=== PATIENT | female | born 1935 | race Caucasian/White ===

== ENCOUNTER 2024-08-26 07:01 | Emergency (ER) | payer OTHER ==
--- NOTE | 2024-08-26 08:26 | RAD REPORT ---
EXAMINATION: XR Hip Left 2 View CLINICAL INDICATION: Female, 88 years old. [facility] MA[facility] fall Bed Name: 17 TECHNIQUE: 2 view radiograph of the left hip were obtained. COMPARISON: No prior exam. FINDINGS: No evidence of fracture or dislocation. Normal alignment. Mild to moderate left hip joint d egenerative changes, and up to moderate degenerative changes of the SI joints with no suspicious focal bone lesion. Soft tissues are unremarkable. IMPRESSION: No acute osseous abnormalities. Up to moderate left hip joint degenerative changes.
--- NOTE | 2024-08-26 08:27 | RAD REPORT ---
EXAMINATION: XR Elbow Left 2 View CLINICAL INDICATION: Female, 88 years old. fall TECHNIQUE: 2 view radiographs of the left elbow were obtained. COMPARISON: No prior exam. FINDINGS: Mildly displaced fracture at the base of the olecranon process. Large joint effusion with e levation of the anterior and posterior fat pads. No significant arthropathy. No suspicious focal bone lesion. Soft tissue swelling about the elbow. IMPRESSION: Mildly displaced fracture at the base of the olecranon process with large effusion.
--- NOTE | 2024-08-26 09:15 | RAD REPORT ---
EXAM: CT brain without contrast HISTORY: TRAUMA COMPARISON: None TECHNIQUE: Multiple contiguous axial images were obtained and a CT of the brain without contrast. Sag ittal and coronal reformats were performed. FINDINGS: No evidence of hydrocephalus, intracranial hemorrhage, or extra-axial fluid collection. The brain is normal in morphology. The calvarium is intact. Layering left maxillary sinus air-fluid level. Mastoid air cells are essenti ally clear. IMPRESSION: No evidence of acute intracranial abnormality. EXAM: CT of the cervical spine without contrast HISTORY: TRAUMA COMPARISON: None TECHNIQUE: Multiple contiguous axial images were obtained in a CT of the cervical spine without contr ast. Sagittal and coronal reformats were performed. FINDINGS: The vertebral bodies demonstrate normal height and alignment. Multilevel degenerative lomeli es, with facet and uncovertebral joint remodeling contributing to up to advanced neural foraminal narrowing on the right at C3-4. C4-C7 plating hardware in place, with demineralization of the fused s egment. No degenerative changes are present. No prevertebral soft tissue swelling is seen. The posterior facets are well aligned. Normal alignment of the skull base with the cervical spine is seen. The lung apices are unremarkable. IMPRESSION: No evidence of acute osseous abnormality of the cervical spine.
--- NOTE | 2024-08-26 09:33 | ER ---
Nurse's Notes [facility] Name: Nancy Somers Age: 88 yrs Sex: Female : 1935 Arrival Date: 08/26/2024 Time: 07:01 Bed 17 Private MD: Diagnosis: Left elbow fracture Presentation: 08/26 07:03 Chief complaint: EMS states: fall injury, c/o pain to left hip and elbow. Coronavirus vc1 screen: Vaccine status: Patient reports receiving the 2nd dose of the covid vaccine. At this time, the client does not indicate any symptoms associated with coronavirus-19. Ebola Screen: Patient negative for fever greater than or equal to 101.5 degrees Fahrenheit, and additional compatible Ebola Virus Disease symptoms Patient denies exposure to infectious person. Patient denies travel to an Ebola-affected area in the 21 days before illness onset. No symptoms or risks identified at this time. Initial Sepsis Screen: Does the patient meet any 2 criteria? No. Patient's initial sepsis screen is negative. Does the patient have a suspected source of infection? No. Patient's initial sepsis screen is negative. Risk Assessment: Do you want to hurt yourself or someone else? Patient reports no desire to harm self or others. Onset of symptoms was August 26, 2024. Care prior to arrival: None. Activity prior to arrival: None. Mechanism of Injury: Fall from standing position. Transition of care: patient was not received from another setting of care. 07:03 Method Of Arrival: EMS: [facility] vc1 07:03 Acuity: TABBY 3 vc1 07:06 Transition of care: patient was not received from another setting of care. Triage Assessment: 07:08 General: Appears in no apparent distress. comfortable, slender, well groomed, well vc1 developed, well nourished, Behavior is calm, cooperative, appropriate for age. Pain: Complains of pain in left hip and left elbow Pain does not radiate. Pain currently is 10 out of 10 on a pain scale. Quality of pain is described as sharp, Pain began suddenly, Aggravated by repositioning. EENT: No deficits noted. No signs and/or symptoms were reported regarding the EENT system. Neuro: Level of Consciousness is awake, alert, obeys commands, Oriented to person, place, time, situation, Appropriate for age. Cardiovascular: Capillary refill < 3 seconds Patient's skin is warm and dry. Respiratory: Airway is patent Respiratory effort is even, unlabored, Respiratory pattern is regular, symmetrical, Breath sounds are clear bilaterally. GI: No deficits noted. No signs and/or symptoms were reported involving the gastrointestinal system. : No deficits noted. No signs and/or symptoms were reported regarding the genitourinary system. Derm: Wound noted left elbow. Musculoskeletal: Circulation, motion, and sensation intact. Range of motion: limited in left hip. Historical: - Allergies: 07:07 No Known Allergies; vc1 - PMHx: 07:07 "heart condition"; Diabetes mellitus; vc1 - PSHx: 07:07 Colostomy; vc1 - Immunization history:: Client reports receiving the 2nd dose of the Covid vaccine, Pneumococcal vaccine is up to date, Flu vaccine is up to date. - Infectious Disease History:: Denies. - Social history:: Smoking status: Patient denies any tobacco usage or history of. Screenin:08 Abuse screen: Denies threats or abuse. Nutritional screening: No deficits noted. vc1 Tuberculosis screening: No symptoms or risk factors identified. 07:15 [facility] ED Fall Risk Assessment (Adult) History of falling in the last 3 months, hb including since admission Yes- single mechanical fall (1 pt) Confusion or Disorientation No (0 pts) Intoxicated or Sedated No (0 pts) Impaired Gait No (0 pts) Mobility Assist Device Used No (0 pt) Altered Elimination No (0 pt) Score/Fall Risk Level 0 - 2 = Low Risk Oriented to surroundings, Maintained a safe environment, Educated pt \\T\\ family on fall prevention, incl call for assistance when getting out of bed. Assessment: 07:15 General: Appears in no apparent distress. Behavior is calm, cooperative. Pain: Pain hb currently is 10 out of 10 on a pain scale. Neuro: Level of Consciousness is awake, alert, obeys commands, Oriented to person, place, time, situation. Cardiovascular: Patient's skin is warm and dry. Respiratory: Respiratory effort is even, unlabored, Respiratory pattern is regular, symmetrical. GI: No signs and/or symptoms were reported involving the gastrointestinal system. : No signs and/or symptoms were reported regarding the genitourinary system. EENT: No signs and/or symptoms were reported regarding the EENT system. Derm: Skin is pink, warm \\T\\ dry. Musculoskeletal: Reports severe pain in left elbow and hip. 08:30 Reassessment: Patient appears in no apparent distress at this time. Patient and/or hb family updated on plan of care and expected duration. Pain level reassessed. Patient is alert, oriented x 3, equal unlabored respirations, skin warm/dry/pink. 10:06 Reassessment: Patient appears in no apparent distress at this time. Patient and/or hb family updated on plan of care and expected duration. Pain level reassessed. Patient is alert, oriented x 3, equal unlabored respirations, skin warm/dry/pink. Vital Signs: 07:03 BP 133 / 56; Pulse 65; Resp 16; Temp 98; Pulse Ox 96% ; Weight 51.71 kg; Height 4 ft. vc1 11 in. ; Pain 10/10; 10:06 Pulse 65; Resp 16; Pulse Ox 100% ; hb 07:03 Body Mass Index 23.02 (51.71 kg, 149.86 cm) vc1 07:03 Pain Scale: Adult vc1 ED Course: 07:02 Patient arrived in ED. vc1 07:05 Jhon Harper MD is Attending Physician. sp3 07:07 Triage completed. vc1 07:09 Patient has correct armband on for positive identification. Bed in low position. Call vc1 light in reach. Side rails up X2. Pulse ox on. NIBP on. 07:15 Provided Education on: tests, result times. hb 07:52 Hip Left 2 View XRAY In Process Unspecified. EDMS 07:52 Elbow Left 2 View XRAY In Process Unspecified. EDMS 08:24 CT Head C Spine In Process Unspecified. EDMS 09:32 Gaetano Ellis MD is Referral Physician. sp3 09:48 Orthoglass splint: posterior long arm splint applied to the left arm. Sling applied to em1 left arm. 10:06 No provider procedures requiring assistance completed. Patient did not have IV access hb during this emergency room visit. Administered Medications: 10:06 Drug: HYDROcodone-acetaminophen PO 5 mg-325 mg 2 tabs PO once Route: PO; hb Medication: 07:15 VIS not applicable for this client. hb Outcome: 09:32 Discharge ordered by . sp3 10:07 Discharged to home via wheelchair, with family, hb 10:07 Condition: stable 10:07 Discharge instructions given to patient, family, Instructed on discharge instructions, follow up and referral plans. medication usage, Demonstrated understanding of instructions, follow-up care, medications, Prescriptions given X 1, 10:08 Patient left the ED. Signatures: Dispatcher [employer] Michel Saavedra em1 Gypsy Ann RN RN Alexia Samson RN RN Jhon Harper MD MD sp3 Shalini Lerma RN RN vc1
--- NOTE | 2024-08-26 09:33 | EDPHYS ---
Physician Documentation [facility] Name: Nancy Somers Age: 88 yrs Sex: Female : 1935 Arrival Date: 08/26/2024 Time: 07:01 Bed 17 Private MD: ED Physician Jhon Harper HPI: 08/26 07:27 This 88 yrs old Female presents to ER via EMS with complaints of Fall Injury, Hip Pain. 3 07:27 88-year-old female history of diabetes, hypertension, currently on Eliquis presents to 3 the ED with a mechanical fall while using her walker with injury to the left hip, left elbow and head. Denies loss of consciousness. No other complaints including medical prodrome, chest pain, shortness breath, abdominal pain, other extremity pain, syncope, or any other signs or symptoms on ROS at this time.. Historical: - Allergies: 07:07 No Known Allergies; vc1 - PMHx: 07:07 "heart condition"; Diabetes mellitus; vc1 - PSHx: 07:07 Colostomy; vc1 - Immunization history:: Client reports receiving the 2nd dose of the Covid vaccine, Pneumococcal vaccine is up to date, Flu vaccine is up to date. - Infectious Disease History:: Denies. - Social history:: Smoking status: Patient denies any tobacco usage or history of. ROS: 07:28 Constitutional: Negative for fever, chills, and weight loss, Eyes: Negative for injury, sp3 pain, redness, and discharge, Neck: Negative for injury, pain, and swelling, Cardiovascular: Negative for chest pain, palpitations, and edema, Respiratory: Negative for shortness of breath, cough, wheezing, and pleuritic chest pain, Abdomen/GI: Negative for abdominal pain, nausea, vomiting, diarrhea, and constipation, Back: Negative for injury and pain, Skin: Negative for injury, rash, and discoloration, Allergy/Immunology: Negative for hives, rash, and allergies, Endocrine: Negative for neck swelling, polydipsia, polyuria, polyphagia, and marked weight changes, Hematologic/Lymphatic: Negative for swollen nodes, abnormal bleeding, and unusual bruising, 07:28 All other systems are negative, Exam: 07:28 Constitutional: This is a well developed, well nourished patient who is awake, alert, sp3 and in no acute distress. Head/Face: Normocephalic, atraumatic. Eyes: Pupils equal round and reactive to light, extra-ocular motions intact. Lids and lashes normal. Conjunctiva and sclera are non-icteric and not injected. Cornea within normal limits. Periorbital areas with no swelling, redness, or edema. ENT: Nares patent. No nasal discharge, no septal abnormalities noted. External auditory canals are clear. Oropharynx with no redness, swelling, or masses, exudates, or evidence of obstruction, uvula midline. Mucous membranes moist. Neck: Trachea midline, no thyromegaly or masses palpated, and no cervical lymphadenopathy. Supple, full range of motion without nuchal rigidity, or vertebral point tenderness. No Meningismus. Chest/axilla: Normal chest wall appearance and motion. Nontender with no deformity. No lesions are appreciated. Cardiovascular: Regular rate and rhythm with a normal S1 and S2. No gallops, murmurs, or rubs. Normal PMI, no JVD. No pulse deficits. Respiratory: Lungs have equal breath sounds bilaterally, clear to auscultation and percussion. No rales, rhonchi or wheezes noted. No increased work of breathing, no retractions or nasal flaring. Abdomen/GI: Soft, non-tender, with normal bowel sounds. No distension or tympany. No guarding or rebound. No evidence of tenderness throughout. Back: No spinal tenderness. No costovertebral tenderness. Full range of motion. Skin: Warm, dry with normal turgor. Normal color with no rashes, no lesions, and no evidence of cellulitis. Neuro: Awake and alert, GCS 15, oriented to person, place, time, and situation. Cranial nerves II-XII grossly intact. Motor strength 5/5 in all extremities. Sensory grossly intact. Cerebellar exam normal. Normal gait. Psych: Awake, alert, with orientation to person, place and time. Behavior, mood, and affect are within normal limits. 07:28 Musculoskeletal/extremity: Pain to lateral epicondyle of the left elbow. Distal neurovascular exam of the left upper extremity is intact. Pain to the lateral left hip as well without deformity, leg shortening or external rotation. No pain on axial load. Distal neurovascular exam of the left lower extremity is also normal.. Vital Signs: 07:03 BP 133 / 56; Pulse 65; Resp 16; Temp 98; Pulse Ox 96% ; Weight 51.71 kg; Height 4 ft. vc1 11 in. ; Pain 10/10; 10:06 Pulse 65; Resp 16; Pulse Ox 100% ; hb 07:03 Body Mass Index 23.02 (51.71 kg, 149.86 cm) vc1 07:03 Pain Scale: Adult vc1 MDM: 07:07 Medical Screening Exam initiated sp3 07:29 Data reviewed: vital signs, nurses notes, radiologic studies. ED course: 88-year-old sp3 female with mechanical fall. Differential diagnosis includes hip contusion, hip fracture, left elbow contusion, left elbow sprain or fracture, possible head injury. Workup will include CT scan of the head and C-spine, x-ray of the left elbow and x-ray of the left hip. No further diagnostics indicated at this time. Neurological exam is normal.. 09:17 ED course: Hip x-ray and CT scan of the head and C-spine demonstrate no traumatic sp3 abnormality. Left elbow demonstrates fracture at base of olecranon process left side with joint effusion. Will place patient in splint and sling and have follow-up with orthopedics.. 08/26 07:06 Order name: Hip Left 2 View XRAY; Complete Time: 09:03 sp3 08/26 07:06 Order name: Elbow Left 2 View XRAY; Complete Time: 09:03 sp3 08/26 07:26 Order name: CT Head C Spine; Complete Time: 09:16 sp3 08/26 09:18 Order name: Splint: Left Elbow; Complete Time: 09:48 sp3 08/26 09:18 Order name: Sling; Complete Time: 09:48 sp3 Administered Medications: 10:06 Drug: HYDROcodone-acetaminophen PO 5 mg-325 mg 2 tabs PO once Route: PO; hb Disposition Summary: 08/26/24 09:32 Discharge Ordered Notes: Location: Home sp3 Condition: Stable sp3 Diagnosis - Left elbow fracture sp3 Followup: sp3 - With: Gaetano Ellis MD - When: Upon discharge from the Emergency Department - Reason: Continuance of care Discharge Instructions: - Discharge Summary Sheet sp3 - Cast or Splint Care, Adult sp3 - Ulnar Fracture sp3 - How to Use a Sling sp3 Forms: - Medication Reconciliation Form sp3 - Antibiotic Education sp3 - Prescription Opioid Use sp3 - Patient Portal Instructions sp3 - Leadership Thank You Letter sp3 Prescriptions: - Tramadol 50 mg Oral Tablet - take 1 tablet ORAL route every 8 hours as needed; 12 tablet; Refills: 0, sp3 Product Selection Permitted Signatures: Dispatcher [employer] EDMS Alexia Samson RN RN Jhon Harper MD MD sp3 Shalini Lerma RN RN vc1 Corrections: (The following items were deleted from the chart) 09:34 09:17 ED course: Hip x-ray and CT scan of the head and C-spine demonstrate no traumatic sp3 abnormality. Left elbow demonstrates proximal radius/elbow fracture with joint effusion. Will place patient in splint and sling and have follow-up with orthopedics.. sp3 09:35 09:17 ED course: Hip x-ray and CT scan of the head and C-spine demonstrate no traumatic sp3 abnormality. Left elbow demonstrates proximal radius/elbow fracture with joint effusion. Will place patient in splint and sling and have follow-up with orthopedics.. sp3
[2024-08-26] MEDS ORDERED: HYDROCODONE/APAP 5/325 MG TAB ONE (09:56)
[2024-08-26 10:13] VITALS: BP 133/56; TEMP 98
[2024-08-26 10:14] VITALS: O2SAT 100
== END 2024-08-26 10:08 | disposition home or self-care (01) ==
LOC: ER 07:01
PROC: 2W3BX1Z Immobilization of Left Upper Arm using Splint (ICD-10-PCS; principal; 2024-08-26)
DX: S52.022A Displaced fracture of olecranon process without intraarticular extension of left ulna, initial encounter for closed fracture (principal); M25.552 Pain in left hip; W18.30XA Fall on same level, unspecified, initial encounter
CPT/HCPCS: 70450; 72125; 99284